=== PATIENT | female | born 1990 | race American Indian/Alaskan Native ===

== ENCOUNTER 2018-08-14 19:41 | Emergency (ER) | payer OTHER ==
--- NOTE | 2018-08-14 19:51 | Emergency Department Report ---
Blank Doc - Documentation Documentation: This is a 28-year-old female that presents with headache. Denies any trauma. Denies worst headache or tunderclap headache. Stated has some light sensitivity. B/P 173/108 in triage This initial assessment/diagnostic orders/clinical plan/treatment(s) is/are subject to change based on patient's health status, clinical progression and re- assessment by fellow clinical providers in the ED. Further treatment and workup at subsequent clinical providers discretion. Patient/guardians urged not to elope from the ED as their condition may be serious if not clinically assessed and managed. Initial orders include: 1- Patient sent to [facility] for further evaluation and treatment 2- CT head 3- UA/preg
[2018-08-14 19:52] VITALS: BP 173/108
[2018-08-14 21:19] LABS: Bilirubin,Urine NEG (Negative); Blood,Urine NEG (Negative); Color,Urine Yellow (Yellow); Mucus,Urine FEW /HPF; Protein,Urine <15 mg/dL mg/dL (Negative); Urobilinogen,Urine < 2.0 mg/dL (<2.0)
--- NOTE | 2018-08-14 22:00 | Cat Scan Report ---
PROCEDURE: CT HEAD/BRAIN WO CON TECHNIQUE: Computerized tomography of the head was performed without contrast material. CT DOSE LENGTH PRODUCT: mGycm HISTORY: headache with HTN COMPARISONS: None . FINDINGS: Skull and scalp: Normal . Paranasal sinuses: Normal . Ventricles and subarachnoid spaces: Normal . Cerebrum: No evidence of hemorrhage, acute infarction or mass . Cerebellum and brainstem: No evidence of hemorrhage, acute infarction or mass . Vasculature: Normal . Other: None . ASPECTS: 10 IMPRESSION: Normal Examination . This document is electronically signed by Zbigniew Pappas MD., August 14 2018 09:58:51 PM ET
[2018-08-14] MEDS ORDERED: BENADRYL IV ONE (22:39)
[2018-08-14] MEDS ORDERED: TORADOL IV ONE (22:39)
[2018-08-14] MEDS ORDERED: REGLAN IV ONE (22:39)
--- NOTE | 2018-08-14 22:57 | Emergency Department Report ---
ED Headache HPI - General Chief Complaint: Headache Stated Complaint: LEFT FACE SWOLLEN PAIN Time Seen by Provider: 08/14/18 19:49 Source: patient - History of Present Illness Initial Comments: 28-year-old [place] female presents to the emergency room for headache that she's had for 2-3 days. Patient states that it feels like a sinus headache is located on her left side of her head in her left eye is watery. Patient also reports that she has high blood pressure and that the lisinopril that she has been taken is not helping. Patient brings in a bottle of lisinopril 10 mg that she's had for a while. Patient denies any nausea or vomiting but does report some photo sensitivity. Patient denies any shortness of breathing and chest pain. Patient denies any nasal congestion runny nose or sore throat. Patient reports a past medical history of hypertension that is not stable on lisinopril. Patient has no known drug allergies. Timing/Duration: other (2-3 days) Head Injury Location: frontal (left side) Associated Symptoms: denies symptoms. denies: fatigue, facial pain, fever/chills, flushing, loss of consciousness, nausea/vomiting, nasal congestion, nasal drainage, numbness in legs/feet, sinus infection, stiff neck, vision changes Allergies/Adverse Reactions: Allergies No Known Allergies Allergy (Verified 08/14/18 19:45) Home Medications: Ambulatory Orders amLODIPine [Norvasc] 5 mg PO DAILY #30 tab 08/14/18 hydroCHLOROthiazide [HCTZ] 25 mg PO QDAY #30 tablet 08/14/18 ED Review of Systems ROS: Stated complaint: LEFT FACE SWOLLEN PAIN Other details as noted in HPI Comment: All other systems reviewed and negative Eyes: eye discharge (watery left eye) Neurological: headache (feels like pressure to left eye) ED Past Medical Hx - Past Medical History Hx Hypertension: Yes Additional medical history: sinusitis - Social History Smoking Status: Never Smoker Substance Use Type: Alcohol - Medications Home Medications: Home Medications Medication Instructions Recorded Confirmed Last Taken Type amLODIPine [Norvasc] 5 mg PO DAILY #30 tab 08/14/18 Unknown Rx hydroCHLOROthiazide [HCTZ] 25 mg PO QDAY #30 tablet 08/14/18 Unknown Rx ED Physical Exam - General Limitations: No Limitations General appearance: alert, in no apparent distress - Head Head exam: Present: atraumatic, normocephalic - Eye Eye exam: Present: other (left eye watery) - ENT ENT exam: Present: mucous membranes moist - Neck Neck exam: Present: normal inspection - Respiratory Respiratory exam: Present: normal lung sounds bilaterally. Absent: respiratory distress - Cardiovascular Cardiovascular Exam: Present: regular rate, normal rhythm. Absent: systolic murmur, diastolic murmur, rubs, gallop - GI/Abdominal GI/Abdominal exam: Present: soft, normal bowel sounds - Extremities Exam Extremities exam: Present: normal inspection - Back Exam Back exam: Present: normal inspection - Neurological Exam Neurological exam: Present: alert, oriented X3 - Expanded Neurological Exam Expanded Cranial nerves: EOM's Intact: Normal, Gag Reflex: Normal, Tongue Deviation: Normal, Nystagmus: Normal, Facial Sensation: Normal, Facial Palsy with Forehead Movement: Normal, Facial Palsy without Forehead Movement: Normal Cerebellar function: Finger to Nose: Normal, Heel to Lynch: Normal, Romberg: Normal Upper motor neuron: Damaso Neglect: Normal, Pronator Drift: Normal, Sensory Extinction: Normal Sensory exam: Upper Extremity Light Touch: Normal, Upper Extremity Pin Prick: Normal, Upper Extremity Temperature: Normal, UE 2 Point Discrimination: Normal Motor strength exam: RUE: 5, LUE: 5, RLE: 5, LLE: 5 Best Eye Response ([place]): (4) open spontaneously Best Motor Response ([place]): (6) obeys commands Best Verbal Response ([place]): (5) oriented [place] Total: 15 - Psychiatric Psychiatric exam: Present: normal affect, normal mood - Skin Skin exam: Present: warm, dry, intact, normal color. Absent: rash ED Course Vital Signs 08/14/18 19:49 Temperature 98.6 F Pulse Rate 67 Respiratory 16 Rate Blood Pressure 173/108 O2 Sat by Pulse 96 Oximetry ED Medical Decision Making - Medical Decision Making Patient has been evaluated by this provider and fast. Patient's given an IV for Benadryl and Reglan she's had ibuprofen in triage. Hypertension patient be treated with hydrochlorothiazide 25 mg by mouth daily and amlodipine 5 mg by mouth daily and a referral to [facility] for evaluation of hypertension. Patient verbalized understanding Critical care attestation.: If time is entered above; I have spent that time in minutes in the direct care of this critically ill patient, excluding procedure time. ED Disposition Clinical Impression: Head ache Qualifiers: Headache type: unspecified Headache chronicity pattern: acute headache Intractability: intractable Qualified Code(s): R51 - Headache HTN (hypertension) Qualifiers: Hypertension type: unspecified Qualified Code(s): I10 - Essential (primary) hypertension Disposition: DC-01 TO HOME OR SELFCARE Is pt being admited?: No Does the pt Need Aspirin: No Condition: Stable Instructions: Hypertension (ED), Acute Headache (ED) Additional Instructions: Please take blood pressure medication as prescribed. I have refer to [facility]. They are able to manage her blood pressure. Please call first thing in the morning to make an appointment so he will not run out of medication. Prescriptions: hydroCHLOROthiazide [HCTZ] 25 mg PO QDAY #30 tablet amLODIPine [Norvasc] 5 mg PO DAILY #30 tab Referrals: PRIMARY CARE, [Referring] - 3-5 Days Forms: Work/School Release Form(ED)
== END 2018-08-14 23:13 | disposition home or self-care (01) ==
LOC: ED 19:41
DX: R51 Headache (principal); I10 Essential (primary) hypertension
CPT/HCPCS: 36415; 70450; 81001; 84703; 96374; 96375; 99284; J1200; J2765